=== PATIENT | female | born 1940 | race Caucasian/White ===

== ENCOUNTER → 2019-01-06 | Outpatient (CLI) | payer MEDICARE, OTHER ==
[~2019-01-06] MED LIST: ALENDRONATE SOD70 MG PO; ANASTROZOLE1 MG PO; AUGMENTIN 875875 MG PO; CLONIDINE0.1 PO; COLACE100 MG PO; CYMBALTA30 MG PO; HYDROCODONE-AP1 EAC6 PO; LASIX 40 MG TAB40 M2 PO; LEVOTHYROXIN0.075 MG PO; LEXAPRO 10 MG T10 M1 PO; LISINOPRIL-HCT1 EACH PO; LISINOPRIL10 MG PO; LOPRESSOR100 M1 PO; LOPRESSOR50 PO; METFORMIN HCL500 MG PO; METOPROLOL SUCC50 MG PO; NORCO 5-325 TA1 EAC1 PO; NORVASC2.5 MG PO; POTASSIUM20 PO; ZOCOR 10 MG TAB10 MG PO; ZOCOR20 MG PO; [UNRECOGNIZED DRUG - REMARK] PO
== END ==
LOC: M.RAD 01-01 14:05
DX: Z12.31 Encounter for screening mammogram for malignant neoplasm of breast (principal); M85.88 Other specified disorders of bone density and structure, other site

== ENCOUNTER 2019-07-07 11:54 | Inpatient (IN) | payer MEDICARE, OTHER ==
[2019-07-07] VITALS (7 sets, daily range): BP systolic 142–190; BP diastolic 36–85
[~2019-07-07] VITALS: Ht 152.4 cm; Wt 60.3 kg
[~2019-07-07 11:54] MED LIST changes: +NORVASC 2.5 MG2.5 M1 PO; -NORVASC2.5 MG PO; +SYNTHROID75 MCG PO
[2019-07-07 12:31] LABS: HEMATOCRIT 49.2 % (37.0-47.0); HEMOGLOBIN 17.3 gm/dL (12.0-15.0); MCH 32.7 pg (26.0-34.0); MCHC 35.1 g/dL (28.0-37.0); MCV 93.1 fL (80.0-100.0); MPV 8.1 fl. (7.2-11.1); NUCLEATED RBCS 0 /100WBC; PLATELET COUNT* 401 thou/uL (150-400); RBC 5.28 mil/uL (4.20-5.00); RDW-CV 13.2 % (10.5-14.5); WBC 24.1 thou/uL (4.0-11.0)
[2019-07-07 12:39] LABS: CALCIUM 8.9 mg/dL (8.5-10.1); CREATININE 0.6 mg/dL (0.6-1.3); POTASSIUM 3.7 mmol/L (3.5-5.1)
[2019-07-07 12:42] LABS: APTT 26.5 Seconds (25.0-31.3); PROTIME 9.8 Seconds (9.20-11.50)
[2019-07-07 12:44] LABS: ALBUMIN 3.8 g/dL (3.4-5.0); TOTAL BILIRUBIN 0.4 mg/dL (<0.1-1.0); TOTAL PROTEIN 7.7 g/dL (6.4-8.2)
[2019-07-07 12:51] LABS: BE -4.7 mmol/L (-2 to +3); PCO2 45.8 mmHg (35.0-45.0); PO2 107.6 mmHg (75.0-100.0)
[2019-07-07 12:55] LABS: pH 7.297 (7.340-7.450)
[2019-07-07 13:23] LABS: ABSOLUTE LYMPHOCYTES 3.9 thou/uL (0.8-5.3); ABSOLUTE MONOCYTES 0.7 thou/uL (0.0-1.2); ABSOLUTE NEUTROPHILS 19.5 thou/uL (1.6-8.1); ATYPICAL LYMPHS 3 %; PLATELET ESTIMATE ADEQUATE
--- NOTE | 2019-07-07 17:02 | EKG ---
[place] [address] ELECTROCARDIOGRAM REPORT Name: JOSKYLAR Yunior Room: [address] ADM IN M.R.#: [id number] Admission: 07/07/19 Attend Phys: Mike Alejo Discharge: Date of : 38 Report #: [id number] THIS REPORT FOR: //name// [facility] ED Test Date: 2019-07-07 Test Time: 12:18:56 Pat Name: SKYLAR JO Department: Room: [facility] Gender: F Senior Benefits Manager: : 1940 Requested By: Remington Landers Order Number: [id number] MD: Fei Vizcarra Measurements Intervals [place] Rate: 88 P: 82 FL: 165 QRS: 69 QRSD: 81 T: 2 QT: 423 QTc: 512 Interpretive Statements Sinus rhythm Low voltage, extremity leads Probable anteroseptal infarct, old Prolonged QT interval Compared to ECG 09/30/2015 10:37:32 Low QRS voltage now present Myocardial infarct finding now present Prolonged QT interval now present Electronically Signed On 07-07-2019 17:01:52 [employer] by Fei Vizcarra [email or web address] <ELECTRONICALLY SIGNED> By: Fei Vizcarra MD, FACC 07/07/19 1701 1218 1218 Fei Vizcarra MD, FAC /EPI
[2019-07-07] MEDS ORDERED: ARIMIDEX PO (18:44)
[2019-07-07] MEDS ORDERED: DULOXETINE HCL30 MG PO (18:44)
[2019-07-07] MEDS ORDERED: IBUPROFEN 200200 M1 PO (18:45)
[2019-07-08 07:15] LABS: URINE BILIRUBIN NEGATIVE (Negative); URINE BLOOD NEGATIVE (Negative); URINE CLARITY CLEAR; URINE COLOR YELLOW; URINE GLUCOSE-RANDOM 2+ (Negative); URINE KETONES 1+ (Negative); URINE LEUKOCYTES-REFLEX NEGATIVE (Negative); URINE NITRITE-REFLEX NEGATIVE (Negative); URINE PROTEIN NEGATIVE (Negative); URINE UROBILINOGEN 0.2 E.U./dl (0.2-1.0)
[2019-07-08 08:05] VITALS: BP 153/63
[2019-07-08 10:01] LABS: ABSOLUTE LYMPHOCYTES 1.9 thou/uL (0.8-5.3); ABSOLUTE MONOCYTES 0.3 thou/uL (0.0-1.2); ABSOLUTE NEUTROPHILS 19.1 thou/uL (1.6-8.1); BASOPHILS 0.1 %; HEMATOCRIT 41.3 % (37.0-47.0); MCH 32.1 pg (26.0-34.0); MCHC 34.7 g/dL (28.0-37.0); MCV 92.4 fL (80.0-100.0); MONOCYTES 1.4 %; MPV 8.2 fl. (7.2-11.1); NUCLEATED RBCS 0 /100WBC; PLATELET COUNT* 358 thou/uL (150-400); POLYS 89.5 %; RBC 4.47 mil/uL (4.20-5.00); RDW-CV 13.2 % (10.5-14.5); WBC 21.4 thou/uL (4.0-11.0)
[2019-07-08 10:04] LABS: HEMOGLOBIN 14.3 gm/dL (12.0-15.0)
[2019-07-08 10:31] LABS: ALBUMIN 3.2 g/dL (3.4-5.0); CALCIUM 8.8 mg/dL (8.5-10.1); CREATININE 0.6 mg/dL (0.6-1.3); POTASSIUM 3.7 mmol/L (3.5-5.1); TOTAL BILIRUBIN 0.4 mg/dL (<0.1-1.0); TOTAL PROTEIN 6.6 g/dL (6.4-8.2)
[2019-07-08 16:00] VITALS: BP 132/60
[2019-07-08 19:30] VITALS: BP 126/50
[2019-07-09] VITALS: BP 121/44
[2019-07-09 07:50] VITALS: BP 115/53
[2019-07-09] MEDS ORDERED: LEVAQUIN 500 M500 M2 PO (10:04)
[2019-07-09] MEDS ORDERED: PREDNISONE 10 M10 MG PO (10:04)
[2019-07-09] MEDS ORDERED: ATIVAN0.5 M1 PO (10:07)
[2019-07-09 11:51] VITALS: BP 115/53
== END 2019-07-09 12:25 | disposition home or self-care (01) | DRG 871 ==
LOC: M.ERS 11:54 → M.3W 13:28 → M.TBA-ER 13:28 → M.3W 15:47
PROVIDERS: Physician Assistant; ADMIT Internal Medicine
DX: A41.9 Sepsis, unspecified organism (principal); J96.01 Acute respiratory failure with hypoxia; J20.9 Acute bronchitis, unspecified; I10 Essential (primary) hypertension; F17.210 Nicotine dependence, cigarettes, uncomplicated; E78.5 Hyperlipidemia, unspecified; E03.9 Hypothyroidism, unspecified; E11.9 Type 2 diabetes mellitus without complications; Z79.899 Other long term (current) drug therapy; Z90.49 Acquired absence of other specified parts of digestive tract

== ENCOUNTER → 2019-08-05 | Outpatient (CLI) | payer MEDICARE, OTHER ==
[~2019-08-05] MED LIST changes: +ARIMIDEX PO; +ATIVAN0.5 M1 PO; +DULOXETINE HCL30 MG PO; +IBUPROFEN 200200 M1 PO; +LEVAQUIN 500 M500 M2 PO; +PREDNISONE 10 M10 MG PO
== END ==
LOC: M.RAD 17:16
DX: J98.4 Other disorders of lung (principal); Q67.6 Pectus excavatum

== ENCOUNTER → 2019-08-30 | Outpatient (CLI) | payer MEDICARE, OTHER | LOC: M.RAD 14:15 | DX: R05 Cough (principal) ==

== ENCOUNTER → 2020-06-19 | Outpatient (CLI) | payer MEDICARE, OTHER | LOC: M.RAD 03-17 14:00 → M.ULTRA 06-13 10:30 → M.RAD 10:17 → M.ULTRA 10:30 | PROVIDERS: ATTEND Internal Medicine Hematology & Oncology | DX: Z12.31 Encounter for screening mammogram for malignant neoplasm of breast (principal); D72.829 Elevated white blood cell count, unspecified; K76.0 Fatty (change of) liver, not elsewhere classified ==

== ENCOUNTER → 2021-01-03 | Outpatient (CLI) | payer MEDICARE, OTHER | LOC: M.ULTRA 10:01 | PROVIDERS: ATTEND Family Medicine | DX: N28.1 Cyst of kidney, acquired (principal); R74.8 Abnormal levels of other serum enzymes ==